=== PATIENT | male | born 1990 | race Caucasian/White ===

== ENCOUNTER 2016-05-18 16:59 | Emergency (ER) ==
[2016-05-18 17:09] VITALS: BP 139/64
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
--- NOTE | 2016-05-19 08:30 | Diag Imaging Result Document ---
PROCEDURE NAME: ELBOW COMPLETE LEFT - 05/18/2016 LEFT ELBOW, THREE VIEWS: FINDINGS: No fracture. No dislocation. IMPRESSION: No acute bony injury.
--- NOTE | 2016-05-19 09:01 | Diag Imaging Result Document ---
PROCEDURE NAME: HEAD/C-SPINE W/O CONTRAST - 05/18/2016 CT HEAD WITHOUT CONTRAST: TECHNIQUE: A dose reduction protocol was used. No comparison exam. FINDINGS: There is no evidence of intracranial hemorrhage, mass effect, midline shift, or hydrocephalus. There is no skull fracture. IMPRESSION: No evidence of intracranial injury. CT CERVICAL SPINE WITHOUT CONTRAST: TECHNIQUE: A dose reduction protocol was used. Axial reformatted sagittal and coronal images are obtained. FINDINGS: There is no fracture identified. There is no subluxation seen. There is no precervical soft-tissue swelling identified. IMPRESSION: No evidence of fracture or subluxation. The on-call radiologist provided preliminary results at 6:33 p.m. on 05/18/2016. MTDD
== END 2016-05-18 19:21 | disposition home or self-care (01) ==
LOC: P.ED 16:59
DX: S42.402A Unspecified fracture of lower end of left humerus, initial encounter for closed fracture (principal); S00.93XA Contusion of unspecified part of head, initial encounter; S00.91XA Abrasion of unspecified part of head, initial encounter; M25.522 Pain in left elbow; R51 Headache; M25.422 Effusion, left elbow; F17.210 Nicotine dependence, cigarettes, uncomplicated; Z71.6 Tobacco abuse counseling; V86.59XA Driver of other special all-terrain or other off-road motor vehicle injured in nontraffic accident, initial encounter
CPT/HCPCS: 70450; 72125